=== PATIENT | female | born 1980 | race Caucasian/White ===

== ENCOUNTER 2019-08-20 12:22 | Emergency (ER) | payer OTHER ==
[~2019-08-20] VITALS: Ht 167.6 cm; Wt 83.9 kg
[2019-08-20] MEDS ORDERED: SODIUM CHLORIDE 0.9% 1000ML 1,000 ML IV STA (12:27)
[2019-08-20] MEDS ORDERED: KETOROLAC TROMETHAMINE 30 MG/ML VIAL IV STA (12:27)
[2019-08-20] MEDS ORDERED: MORPHINE SULFATE INJ 4 MG/ML INJ 1ML IV STA (12:27)
[2019-08-20] MEDS ORDERED: ONDANSETRON HCL INJ 2MG/ML 2ML 2 MG/ML VIAL IV STA (12:27)
[2019-08-20 13:02] LABS: BASOPHILS % 0.4 % (0.0-1.0); EOSINOPHILS # (AUTO) 0.2 (0.0-0.4); EOSINOPHILS % 2.8 % (0.0-6.0); HEMATOCRIT 38.6 % (34.2-44.1); LYMPHOCYTES # (AUTO) 1.8 (1.0-3.2); LYMPHOCYTES % 21.4 % (18.0-39.1); MEAN CORPUSCULAR HEMOGLOBIN 25.6 pg (28-32); MEAN CORPUSCULAR HGB CONC 31.1 g/dL (31-35); MEAN CORPUSCULAR VOLUME 82.5 fL (81-99); MONOCYTES # (AUTO) 0.5 (0.2-0.8); MONOCYTES % 5.6 % (4.4-11.3); NEUTROPHILS # (AUTO) 5.7 (2.1-6.9); NEUTROPHILS % 69.3 % (38.7-80.0); PLATELET COUNT 396 x10e3/uL (140-360); RED BLOOD COUNT 4.68 x10e6/uL (3.6-5.1); RED CELL DISTRIBUTION WIDTH 14.4 % (11.7-14.4)
--- OUTSIDE RECORDS SUMMARY | 2019-08-20 13:12 | XMS REPORT | Summary of Care ---
Author Author [facility] Address [address] [place] [address] Phone Unavailable Care Team Providers Care Manufacturing Systems Engineer Name Role Phone GEM Alvarez, BERONICA Unavailable Unavailable MAYA BLACKWELL APRN Unavailable Unavailable FARAH-FOSTER N.P., DARION Unavailable Unavailable FARAH-FOSTER SYNTHETIC SOIL BLOCKS PULPER-C, DARION Unavailable Unavailable BERONICA RABAGO MD Unavailable Unavailable VASQUEZ OLIVEROS [place], JASON JEFFERSON Unavailable Unavailable MAYA RAGLAND Unavailable Unavailable Unavailable Unavailable Functional Status Name Dates Details Functional status health issues are not documented Status: Name Dates Details Cognitive status health issues are not documented Status: Problems Name Dates Details Tinnitus (388.30, H93.19) Status: Active Establishing care with new doctor, encounter for (V65.8, Z76.89) Status: Active Obsessive-compulsive symptoms (300.3, R46.81) Status: Active Anemia (285.9, D64.9) Status: Active Tetanus, diphtheria, and acellular pertussis (Tdap) vaccination declined (V64.06, Z28.21) Status: Active Anxiety, generalized (300.02, F41.1) Status: Active Moderate episode of recurrent major depressive disorder (296.32, F33.1) Status: Active Panic disorder (300.01, F41.0) Status: Active Attention deficit hyperactivity disorder (ADHD), combined type (314.01, F90.2) Status: Active Fall at home (E888.9, W19.XXXA) Status: Active Influenza vaccination declined by patient (V64.06, Z28.21) Status: Active Diffuse pain in left upper extremity (729.5, M79.602) Status: Active Left elbow pain (719.42, M25.522) Status: Active Medications Name Dates Details ZyrTEC Allergy CAPS Active Hemocyte Plus 106-1 MG Oral Capsule TAKE ONE CAPSULE BY MOUTH DAILY * Quantity: 90 Refills: 1 FARAH-FOSTER N.P., DARION * Start : 27-Sep-2017 Active clonazePAM 0.5 MG Oral Tablet TAKE 1/2- 1 TABLET BY MOUTH TWICE A DAY NEEDED * Quantity: 20 Refills: 0 BERONICA RABAGO M.D. * Start : 01-Oct-2017 Active FLUoxetine HCl - 40 MG Oral Capsule TAKE 1 CAPSULE DAILY * Quantity: 90 Refills: 0 GEM Alvarez, BERONICA * Start : 13-Jul-2018 Active QUEtiapine Fumarate 25 MG Oral Tablet 1-2 tablets at bedtime * Quantity: 60 Refills: 2 BERONICA RABAGO M.D. * Start : 08-Jan-2018 Active Adderall XR 30 MG Oral Capsule Extended Release 24 Hour TAKE 1 CAPSULE DAILY * Refills: 0 Active Adderall 15 MG Oral Tablet TAKE 1 TABLET DAILY PRN * Refills: 0 Active Turmeric CAPS * Refills: 0 Active Diclofenac Sodium 1 % Transdermal Gel Apply sparingly to affected area twice daily as needed for pain. * Quantity: 1 Refills: 0 MAYA BLACKWELL APRN * Start : 01-Apr-2019 Active 100 GM Tube Allergies and Adverse Reactions Name Dates Details No Known Allergies (Allergy) Status: Active Procedures Procedure Dates Details History of Tubal ligation Completed Immunization Name Dates Details Influenza Comments: PERM DERFERRAL, PT DECLINED Tdap (Adacel) Comments: PERM DEFERRAL, PT DECLINED Family History Name Dates Details Family history of essential hypertension (V17.49, Z82.49) Status: Active Family history of High blood cholesterol (272.0, E78.00) Status: Active Name Dates Details Family history of essential hypertension (V17.49, Z82.49) Status: Active Social History Name Dates Details - Status: Name Dates Details Never smoked tobacco (finding) Vital Signs Date Test Result Details No Known Vitals to report Results Date Description Value Details Results not documented Plan of Care Name Dates Details Planned Observations Planned Goals not documented Planned Encounters Appointment; MAYA BLACKWELL APRN On: 20-Aug-2019 10:00 Appointment; MAYA BLACKWELL APRN On: 23-Aug-2019 8:30 Instructions Name Dates Details Instructions not documented Encounters Appointment; MAYA BLACKWELL APRN Encounter Diagnosis: Problem not documented On: 25-Sep-2017 10:00 Appointment; DARION BRITO NP Encounter Diagnosis: Problem not documented On: 01-Oct-2017 13:00 Appointment; GUILLAUME TILLMAN Encounter Diagnosis: Problem not documented On: 28-Oct-2017 15:00 Appointment; DARION BRITO CONTACT CENTER SPECIALIST Encounter Diagnosis: Problem not documented On: 30-Oct-2017 15:30 Appointment; GUILLAUME TILLMAN Encounter Diagnosis: Problem not documented On: 25-Nov-2017 16:00 Appointment; DARION BRITO, CONTACT CENTER SPECIALIST Encounter Diagnosis: Problem not documented On: 10-Dec-2017 13:00 Appointment; GUILLAUME TILLMAN Encounter Diagnosis: Problem not documented On: 25-Dec-2017 16:00 Appointment; DARION BRITO CONTACT CENTER SPECIALIST Encounter Diagnosis: Problem not documented On: 08-Jan-2018 11:00 Appointment; DARION BRITO CONTACT CENTER SPECIALIST Encounter Diagnosis: Problem not documented On: 18-Feb-2018 16:00 Appointment; DARION BRITO CONTACT CENTER SPECIALIST Encounter Diagnosis: Problem not documented On: 18-Feb-2018 16:00 Appointment; DARION BRITO CONTACT CENTER SPECIALIST Encounter Diagnosis: Problem not documented On: 17-Jun-2018 11:30 Appointment; BERONICA RABAGO M.D. Encounter Diagnosis: Problem not documented On: 07-Jul-2018 8:00 Appointment; BERONICA RABAGO M.D. Encounter Diagnosis: Problem not documented On: 13-Aug-2018 16:00 Appointment; MAYA BLACKWELL APRN Encounter Diagnosis: Problem not documented On: 01-Apr-2019 8:45
--- OUTSIDE RECORDS SUMMARY | 2019-08-20 13:12 | XMS REPORT | Summary of Care ---
Author Author MAYA BLACKWELL APRN Organization Unknown Address Unknown Phone Unavailable Care Team Providers Care Parts Delivery Driver Name Role Phone BERONICA RABAGO M.D. Unavailable Unavailable MAYA BLACKWELL APRN Unavailable Unavailable FARAH-FOSTER N.P., DARION Unavailable Unavailable FARAH-FOSTER RETORT SETTER-C, DARION Unavailable Unavailable GEM OLIVEROS, BERONICA S Unavailable Unavailable VASQUEZ OLIVEROS [place], JASON JEFFERSON Unavailable Unavailable MAYA RAGLAND Unavailable [...] Left elbow pain (719.42, M25.522) Status: Active Left-sided back pain (724.9, M54.9) Status: Active Lower back pain (724.2, M54.5) Status: Active Renal colic on left side (788.0, N23) Status: Active Medications Name Dates Details ZyrTEC Allergy CAPS Active Hemocyte Plus 106-1 MG Oral Capsule TAKE ONE CAPSULE BY MOUTH DAILY * Quantity: 90 Refills: 1 DARION BRITO N.P. * Start : 27-Sep-2017 Active clonazePAM 0.5 MG Oral Tablet TAKE 1/2- 1 TABLET BY MOUTH TWICE A DAY NEEDED * Quantity: 20 Refills: 0 BERONICA RABAGO M.D. * Start : 01-Oct-2017 Active FLUoxetine HCl - 40 MG Oral Capsule TAKE 1 CAPSULE DAILY * Quantity: 90 Refills: 0 BERONICA RABAGO M.D. * Start : 13-Jul-2018 Active QUEtiapine Fumarate 25 MG Oral Tablet 1-2 tablets at bedtime * Quantity: 60 Refills: 2 BERONICA RABAGO M.D. * Start : 08-Jan-2018 Active Adderall XR 30 MG Oral Capsule Extended Release 24 Hour TAKE 1 CAPSULE DAILY * Refills: 0 Active Turmeric CAPS * Refills: 0 Active Diclofenac Sodium 1 % Transdermal Gel Apply sparingly to affected area twice daily as needed for pain. * Quantity: 1 Refills: 0 MAYA BLACKWELL APRN * Start : 01-Apr-2019 Active 100 GM Tube Tylenol CAPS * Refills: 0 Active Ibuprofen TABS * Refills: 0 Active Allergies and Adverse Reactions Name Dates Details No Known Allergies (Allergy) Status: Active Procedures Procedure Dates Details Renal [id number] Date: 20-Aug-2019 History of Tubal ligation Completed Immunization Name [...] (finding) Vital Signs Date Test Result Details [id number] Systolic blood pressure 136 mm[Hg] Status: Comments: Location: LUE; Position: Sitting Diastolic blood pressure 93 mm[Hg] Status: Comments: Location: LUE; Position: Sitting Body height 66 in Status: Weight 234.375 lb Status: Body mass index (BMI) [Ratio] 37.83 kg/m2 Status: Body surface area Derived from formula 2.14 m2 Status: Body temperature 97.7 f Status: Comments: Method: Temporal Heart Rate 82 /min Status: Comments: Location: L Brachial Artery; Respiratory rate 16 /min Status: Results Date Description Value Details [id number] [O] Urine Dipstick (In Office) Glucose normal (Normal) LEUKOCYTES neg (Normal) NITRITE neg (Normal) UROBILINOGEN normal (Normal) PROTEIN neg (Normal) pH 5 URINE BLOOD trace SPECIFIC GRAVITY 1.025 KETONES neg (Normal) BILIRUBIN normal (Normal) COLOR URINE leland APPEARANCE clear Plan of Care Name Dates Details Planned Observations Planned Goals not documented Planned Encounters Appointment; MAYA BLACKWELL APRN On: 23-Aug-2019 8:30 Interventions Provided Labs/Procedures/Imaging* [place] Renal [id number]; To Be Done: 20 Aug 2019 * [O] Urine Dipstick (In Office); Done: 20 Aug 2019 Instructions* Seek Immediate Medical Attention if: The symptoms seem worse.; Done: 20 Aug 2019 Plan* to urgent care to r/o kidney stone * f/u prn * no charge for visit Instructions Name Dates Details Instructions not documented Encounters Appointment; MAYA BLACKWLEL APRN Encounter Diagnosis: Problem not documented On: 25-Sep-2017 10:00 Appointment; DARION BRITO NP Encounter Diagnosis: Problem not documented On: 01-Oct-2017 13:00 Appointment; GUILLAUME TILLMAN Encounter Diagnosis: Problem not documented On: 28-Oct-2017 15:00 Appointment; DARION BRITO NP Encounter Diagnosis: Problem not documented On: 30-Oct-2017 15:30 Appointment; GUILLAUME TILLMAN Encounter Diagnosis: Problem not documented On: 25-Nov-2017 16:00 Appointment; DARION BRITO NP Encounter Diagnosis: Problem not documented On: 10-Dec-2017 13:00 Appointment; GUILLAUME TILLMAN Encounter Diagnosis: Problem not documented On: 25-Dec-2017 16:00 Appointment; DARION BRITO NP Encounter Diagnosis: Problem not documented On: 08-Jan-2018 11:00 Appointment; DARION BRITO NP Encounter Diagnosis: Problem not documented On: 18-Feb-2018 16:00 Appointment; DARION BRITO NP Encounter Diagnosis: Problem not documented On: 18-Feb-2018 16:00 Appointment; DARION BRITO NP Encounter Diagnosis: Problem not documented On: 17-Jun-2018 11:30 Appointment; BERONICA RABAGO M.D. Encounter Diagnosis: Problem not documented On: 07-Jul-2018 8:00 Appointment; BERONICA RABAGO M.D. Encounter Diagnosis: Problem not documented On: 13-Aug-2018 16:00 Appointment; MAYA BLACKWELL APRN Encounter Diagnosis: Problem not documented On: 01-Apr-2019 8:45 Appointment; MAYA BLACKWELL APRN Encounter Diagnosis: Problem not documented On: 20-Aug-2019 10:00
--- OUTSIDE RECORDS SUMMARY | 2019-08-20 13:12 | XMS REPORT | Summary of Care ---
Author Author Kim Etienne M.A. Unknown Address Unknown Phone Unavailable Care Team Providers Care Business Office Assistant Name Role Phone GEM Alvarez, BERONICA Unavailable Unavailable RISHI HOT POND OPERATORMAYA Unavailable Unavailable FARAH-FOSTER N.P., DARION Unavailable Unavailable FARAH-FOSTER SET UP OPERATOR TOOL-C, DARION Unavailable Unavailable GEM OLIVEROS, BERONICA S Unavailable Unavailable VASQUEZ OLIVEROS [place], JASON JEFFERSON Unavailable Unavailable RISHI SET UP OPERATOR TOOL, MAYA Unavailable Unavailable Unavailable Unavailable Functional Status Name [...] (finding) Vital Signs Date Test Result Details :12 Systolic blood pressure 136 mm[Hg] Status: Comments: [...] /min Status: Results Date Description Value Details [id number] [O] Urine Dipstick (In Office) Glucose normal (Normal) LEUKOCYTES neg (Normal) NITRITE neg (Normal) UROBILINOGEN normal (Normal) PROTEIN neg (Normal) pH 5 URINE BLOOD trace SPECIFIC GRAVITY 1.025 KETONES neg (Normal) BILIRUBIN normal (Normal) COLOR URINE leland APPEARANCE clear Plan of Care Name Dates Details Planned Observations Planned Goals not documented Planned Encounters Appointment; MAYA BLACKWELL APRN On: 23-Aug-2019 8:30 Interventions Provided Labs/Procedures/Imaging* [O] Urine Dipstick (In Office); Done: 20 Aug 2019 Instructions Name Dates Details Instructions not documented [...]
--- OUTSIDE RECORDS SUMMARY | 2019-08-20 13:12 | XMS REPORT | Summary of Care ---
Author Author [facility] Address [address] [place] [address] Phone Unavailable Care Team Providers Care Testing Projects Administrator Name Role Phone GEM Alvarez, BERONICA Unavailable Unavailable MAYA BLACKWELL APRN Unavailable Unavailable FARAH-FOSTER N.P., DARION Unavailable Unavailable FARAH-FOSTER FIELD CROP II FARMWORKER-C, DARION Unavailable Unavailable BERONICA RABAGO MD Unavailable Unavailable VASQUEZ OLIVEROS [place], JASON JEFFERSON Unavailable Unavailable MAYA RAGLAND Unavailable [...] (finding) Vital Signs Date Test Result Details [id number] Systolic blood pressure 136 mm[Hg] Status: Comments: [...] /min Status: Results Date Description Value Details Results not documented Plan of Care Name Dates Details Planned Observations Planned Goals not documented Planned Encounters Appointment; MAYA BLACKWELL APRN On: 23-Aug-2019 8:30 Instructions Name Dates Details Instructions not documented Encounters Appointment; MAYA BLACKWELL APRN Encounter Diagnosis: Problem not documented On: 25-Sep-2017 10:00 Appointment; DARION BRITO, MANAGER MED SURG Encounter Diagnosis: Problem not documented On: 01-Oct-2017 13:00 Appointment; GUILLAUME TILLMAN Encounter Diagnosis: Problem not documented On: 28-Oct-2017 15:00 Appointment; DARION BRITO, MANAGER MED SURG Encounter Diagnosis: Problem not documented On: 30-Oct-2017 15:30 Appointment; GUILLAUME TILLMAN Encounter Diagnosis: Problem not documented On: 25-Nov-2017 16:00 Appointment; DARION BRITO, MANAGER MED SURG Encounter Diagnosis: Problem not documented On: 10-Dec-2017 13:00 Appointment; GUILLAUME TILLMAN Encounter Diagnosis: Problem not documented On: 25-Dec-2017 16:00 Appointment; DARION BRITO, MANAGER MED SURG Encounter Diagnosis: Problem not documented On: 08-Jan-2018 11:00 Appointment; ERNESTO BRITOA, MANAGER MED SURG Encounter Diagnosis: Problem not documented On: 18-Feb-2018 16:00 Appointment; DARION BRITO, MANAGER MED SURG Encounter Diagnosis: Problem not documented On: 18-Feb-2018 16:00 Appointment; DARION BRITO, MANAGER MED SURG Encounter Diagnosis: Problem not documented On: 17-Jun-2018 11:30 Appointment; BERONICA RABAGO M.D. Encounter Diagnosis: Problem not documented On: 07-Jul-2018 8:00 Appointment; BERONICA RABAGO M.D. Encounter Diagnosis: Problem not documented On: 13-Aug-2018 16:00 Appointment; MAYA BLACKWELL APRN Encounter Diagnosis: Problem not documented On: 01-Apr-2019 8:45 Appointment; MAYA BLACKWELL APRN Encounter Diagnosis: Problem not documented On: 20-Aug-2019 10:00
--- OUTSIDE RECORDS SUMMARY | 2019-08-20 13:12 | XMS REPORT | Summary of Care ---
Author Author [facility] Address [address] [place] [address] Phone Unavailable Care Team Providers Care Manager Diabetes Name Role Phone GEM Alvarez, BERONICA Unavailable Unavailable BLACKWELL N.P., MAYA Unavailable Unavailable FARAH-FOSTER N.P., DARION Unavailable Unavailable FARAH-FOSTER FARMWORKER POULTRY-C, DARION Unavailable Unavailable GEM OLIVEROS, BERONICA Mukherjee Unavailable Unavailable VASQUEZ OLIVEROS [place], JASON JEFFERSON Unavailable Unavailable Unavailable Unavailable Functional Status Name Dates Details Functional status health issues are not documented Status: Name Dates Details Cognitive status health issues are not documented Status: Problems Name Dates Details Tinnitus (388.30, H93.19) Status: Active Anemia (285.9, D64.9) Status: Active Tetanus, diphtheria, and acellular pertussis (Tdap) vaccination declined (V64.06, Z28.21) Status: Active Attention deficit hyperactivity disorder (ADHD), combined type (314.01, F90.2) Status: Active Fall at home (E888.9, W19.XXXA) Status: Active Influenza vaccination declined by patient (V64.06, Z28.21) Status: Active Diffuse pain in left upper extremity (729.5, M79.602) Status: Active Left elbow pain (719.42, M25.522) Status: Active Establishing care with new doctor, encounter for (V65.8, Z76.89) Status: Active Obsessive-compulsive symptoms (300.3, R46.81) Status: Active Panic disorder (300.01, F41.0) Status: Active Moderate episode of recurrent major depressive disorder (296.32, F33.1) Status: Active Anxiety, generalized (300.02, F41.1) Status: Active Medications Name Dates Details Adderall XR 30 MG Oral Capsule Extended Release 24 Hour TAKE 1 CAPSULE DAILY Active Adderall 15 MG Oral Tablet TAKE 1 TABLET DAILY PRN * Refills: 0 Active Turmeric CAPS * Refills: 0 Active Diclofenac Sodium 1 % Transdermal Gel Apply sparingly to affected area twice daily as needed for pain. * Quantity: 1 Refills: 0 MAYA BLACKWELL N.P. * Start : 01-Apr-2019 Active 100 GM Tube QUEtiapine Fumarate 25 MG Oral Tablet 1-2 tablets at bedtime * Quantity: 60 Refills: 2 BERONICA RABAGO M.D. * Start : 08-Jan-2018 Active FLUoxetine HCl - 40 MG Oral Capsule TAKE 1 CAPSULE DAILY * Quantity: 90 Refills: 0 BERONICA RABAGO M.D. * Start : 13-Jul-2018 Active clonazePAM 0.5 MG Oral Tablet TAKE 1/2- 1 TABLET BY MOUTH TWICE A DAY NEEDED * Quantity: 20 Refills: 0 BERONICA RABAGO M.D. * Start : 01-Oct-2017 Active ZyrTEC Allergy CAPS * Refills: 0 Active Hemocyte Plus 106-1 MG Oral Capsule TAKE ONE CAPSULE BY MOUTH DAILY * Quantity: 90 Refills: 1 DARION BRITO N.P. * Start : 27-Sep-2017 Active Allergies and Adverse Reactions Name Dates [...] Details - Status: Name Dates Details Never smoker Vital Signs Date Test Result Details No Known Vitals to report Results Date Description Value Details Results not documented Plan of Care Name Dates Details Planned Observations Planned Goals not documented Instructions Name Dates Details Instructions not documented Encounters Appointment; MAYA BLACKWELL NP Encounter Diagnosis: Problem not documented On: 25-Sep-2017 [...] documented On: 13-Aug-2018 16:00 Appointment; MAYA BLACKWELL NP Encounter Diagnosis: Problem not documented On: 01-Apr-2019 8:45
--- NOTE | 2019-08-20 13:17 | Diagnostic Imaging Report ---
EXAM: CT Abdomen and Pelvis WITHOUT intravenous contrast INDICATION: Flank pain COMPARISON: None. TECHNIQUE: Abdomen and pelvis were scanned utilizing a multidetector helical scanner from the lung base to the pubic symphysis without administration of IV contrast. Coronal and sagittal reformations were obtained. IV CONTRAST: None ORAL CONTRAST: None COMPLICATIONS: None RADIATION DOSE: Total DLP: 847 mGy*cm Dose modulation, iterative reconstruction, and/or weight based adjustment of the mA/kV was utilized to reduce the radiation dose to as low as reasonably achievable. FINDINGS: LOWER THORAX: Normal. HEPATOBILIARY: No focal liver lesion. No biliary ductal dilation. Cholelithiasis without CT evidence of cholecystitis. SPLEEN: No splenomegaly. PANCREAS: No focal masses or ductal dilatation. ADRENALS: No adrenal nodules. KIDNEYS/URETERS: No hydronephrosis, stones, or solid mass lesions. PELVIC ORGANS/BLADDER: Pessary device in place. PERITONEUM / RETROPERITONEUM: No free air or fluid. LYMPH NODES: No lymphadenopathy. VESSELS: Unremarkable. GI TRACT: No abnormal bowel wall thickening. No bowel obstruction. Normal appendix. BONES AND SOFT TISSUES: No acute osseous injury. IMPRESSION: No acute findings in the abdomen or pelvis. Specifically, no renal calculi or hydronephrosis. Cholelithiasis without CT evidence of cholecystitis. Signed by: Richard Sprague MD on 08/20/2019 1:14 PM
[2019-08-20 13:18] LABS: ALANINE AMINOTRANSFERASE 11 IU/L (0-55); ALBUMIN/GLOBULIN RATIO 1.1 (0.8-2.0); ALKALINE PHOSPHATASE 97 IU/L (40-150); ANION GAP 10.8 mmol/L (8-16); BLOOD UREA NITROGEN 9 mg/dL (7-26); BUN/CREATININE RATIO 12 (6-25); CALCIUM 9.2 mg/dL (8.4-10.2); CARBON DIOXIDE 26 mmol/L (22-29); CHLORIDE 105 mmol/L (98-107); CREATININE, SERUM 0.77 mg/dL (0.57-1.11); EST GLOMERULAR FILTRATION RATE > 60 ML/MIN (60-); GLUCOSE 107 mg/dL (74-118); POTASSIUM 3.8 mmol/L (3.5-5.1); SODIUM 138 mmol/L (136-145)
== END 2019-08-20 15:30 | disposition home or self-care (01) ==
LOC: ER 12:22
DX: S39.012A Strain of muscle, fascia and tendon of lower back, initial encounter (principal); R10.9 Unspecified abdominal pain; R11.0 Nausea; F41.9 Anxiety disorder, unspecified
CPT/HCPCS: 36415; 74176; 80053; 84702; 85025; 87086; 87186; 99284; J1885; J2270; J2405; J7030

== ENCOUNTER 2022-06-29 14:55 | Emergency (ER) | payer OTHER ==
[~2022-06-29] VITALS: Ht 167.6 cm; Wt 83.9 kg
[2022-06-29] MEDS ORDERED: Morphine 4mg INJECTION 4 MG/ML INJ IV STA (15:14)
[2022-06-29] MEDS ORDERED: ONDANSETRON HCL INJ 2MG/ML 2ML 2 MG/ML VIAL IV STA (15:14)
[2022-06-29] MEDS ORDERED: SODIUM CHLORIDE 0.9% 1000ML 1,000 ML IV STA (15:14)
[2022-06-29 15:43] LABS: BASOPHILS % 0.1 % (0.0-1.0); EOSINOPHILS # (AUTO) 0.3 (0.0-0.4); EOSINOPHILS % 3.3 % (0.0-6.0); HEMATOCRIT 41.5 % (34.2-44.1); HEMOGLOBIN 12.7 g/dL (12.0-16.0); LYMPHOCYTES # (AUTO) 1.8 (1.0-3.2); LYMPHOCYTES % 22.4 % (18.0-39.1); MEAN CORPUSCULAR HEMOGLOBIN 29.2 pg (28-32); MEAN CORPUSCULAR HGB CONC 30.6 g/dL (31-35); MEAN CORPUSCULAR VOLUME 95.4 fL (81-99); MONOCYTES # (AUTO) 0.3 (0.2-0.8); MONOCYTES % 4.2 % (4.4-11.3); NEUTROPHILS # (AUTO) 5.5 (2.1-6.9); NEUTROPHILS % 69.6 % (38.7-80.0); PLATELET COUNT 333 x10e3/uL (140-360); RED BLOOD COUNT 4.35 x10e6/uL (3.6-5.1); RED CELL DISTRIBUTION WIDTH 14.5 % (11.7-14.4)
[2022-06-29 15:56] LABS: CLARITY,URINE HAZY (CLEAR); COLOR,URINE YELLOW (YELLOW); KETONES,URINE NEGATIVE (NEGATIVE); LEUKOCYTE ESTERASE ,URINE NEGATIVE (NEGATIVE); NITRITE,URINE NEGATIVE (NEGATIVE); PROTEIN,URINE DIPSTICK 1+ (NEGATIVE); URINE UROBILINOGEN 0.2 mg/dL (0.2 - 1)
[2022-06-29 15:58] LABS: AMORPHOUS SEDIMENT,URINE FEW (FEW); BACTERIA,URINE MODERATE /HPF; EPITHELIAL CELLS,URINE FEW /LPF; HYALINE CASTS 0-1 (0-1); INR 1.01; MUCUS,URINE FEW (RARE); PROTHROMBIN TIME 13.5 seconds (11.9-14.5)
[2022-06-29 15:59] LABS: PARTIAL THROMBOPLASTIN TIME 36.1 seconds (23.8-35.5)
[2022-06-29 16:07] LABS: ALANINE AMINOTRANSFERASE 11 IU/L (0-55); ALBUMIN 3.3 g/dL (3.5-5.0); ALBUMIN/GLOBULIN RATIO 0.8 (0.8-2.0); ALKALINE PHOSPHATASE 76 IU/L (40-150); ANION GAP 13.5 mmol/L (8-16); BLOOD UREA NITROGEN 10 mg/dL (7-26); BUN/CREATININE RATIO 13 (6-25); CARBON DIOXIDE 23 mmol/L (22-29); CHLORIDE 105 mmol/L (98-107); GLUCOSE 145 mg/dL (74-118); MAGNESIUM 1.8 MG/DL (1.3-2.1); POTASSIUM 3.5 mmol/L (3.5-5.1); SODIUM 138 mmol/L (136-145)
[2022-06-29] MEDS ORDERED: IOPAMIDOL 370 MG/ML 100 ML INFUS..BTL INJ ONE (16:35)
[2022-06-29] MEDS ORDERED: DICYCLOMINE HCL20 MG PO (17:50)
[2022-06-29] MEDS ORDERED: ONDANSETRON ODT4 MG PO (17:50)
[2022-06-29 18:20] VITALS: BP 118/68
== END 2022-06-29 18:25 | disposition home or self-care (01) ==
LOC: ER 15:02
DX: R10.31 Right lower quadrant pain (principal); F41.9 Anxiety disorder, unspecified; F90.9 Attention-deficit hyperactivity disorder, unspecified type
CPT/HCPCS: 36415; 74177; 80053; 81001; 83735; 84702; 85025; 85610; 85730; 87086; 99283; C9113; J2270; J2405; J7030; Q9967